=== PATIENT | female | born 1995 | race Caucasian/White ===

== ENCOUNTER 2017-02-14 16:57 | Emergency (ER) | payer MEDICAID ==
[~2017-02-14] VITALS: Ht 162.6 cm; Wt 61.2 kg
[~2017-02-14 16:57] MED LIST: ACET325T21 PO; OXYC1TAB7 PO
[2017-02-14] MEDS ORDERED: ONDANSETRON 2MG/ML, 2ML IVPush ONE (18:00)
[2017-02-14] MEDS ORDERED: SODIUM CHLORIDE FLUSH 10ML SYR IVF ONE (18:00)
[2017-02-14] MEDS ORDERED: SODIUM CHLORIDE 0.9% 1,000ML IVBOLUS ONE (18:00)
[2017-02-14] MEDS ORDERED: morphine SULFATE 10 MG/ML, 1ML ONE (18:27)
[2017-02-14] MEDS ORDERED: ONDANSETRON 2MG/ML, 2ML ONE (18:27)
[2017-02-14] MEDS ORDERED: morphine SULFATE 10 MG/ML, 1ML IV ONE (18:30)
[2017-02-14 18:33] LABS: HEMATOCRIT 41.2 % (34.6-47.8); HEMOGLOBIN 13.4 g/dL (11.7-16.4); WHITE BLOOD COUNT 11.8 x10^3/uL (4.5-13.2)
[2017-02-14 18:44] LABS: BLOOD UREA NITROGEN 13 mg/dL (7-18)
[2017-02-14 18:50] LABS: ASPARTATE AMINO TRANSFERASE 13 U/L (15-37)
[2017-02-14 19:51] VITALS: BP 108/66
== END 2017-02-14 20:24 | disposition home or self-care (01) ==
LOC: ED 19:13
DX: M54.9 Dorsalgia, unspecified (principal); R30.0 Dysuria; R11.2 Nausea with vomiting, unspecified; F17.200 Nicotine dependence, unspecified, uncomplicated; Z87.442 Personal history of urinary calculi
CPT/HCPCS: 36415; 76770; 80053; 81003; 83690; 84703; 85025; 96361; 96374; 96375; 99285; J2270; J2405; J7030